=== PATIENT | female | born 1960 | race Caucasian/White ===

== ENCOUNTER 2018-07-23 12:01 | Emergency (ER) | payer OTHER, BC ==
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
== END 2018-07-23 13:30 | disposition home or self-care (01) ==
LOC: VM.ED 12:01
DX: S62.525A Nondisplaced fracture of distal phalanx of left thumb, initial encounter for closed fracture (principal); I10 Essential (primary) hypertension; V89.2XXA Person injured in unspecified motor-vehicle accident, traffic, initial encounter
CPT/HCPCS: 29125; 73140-FA; 99284